=== PATIENT | male | born 1960 | race African-American/Black ===

== ENCOUNTER 2022-04-10 14:46 | Emergency (ER) | payer OTHER ==
[~2022-04-10] VITALS: Ht 182.9 cm; Wt 100.0 kg
[2022-04-10] MEDS ORDERED: LEVETIRACETAM 500MG TABLET PO ONE (16:00)
[2022-04-10] MEDS ORDERED: LORAZEPAM 2MG/ML CPJ ONE (16:59)
[2022-04-10 17:01] LABS: CHLORIDE 105 mEq/L (98-107)
[2022-04-10 17:10] LABS: ETHANOL BLOOD < 10 mg/dL
[2022-04-10 18:35] LABS: BASOPHILS % 0.6 % (0.0-2.0); EOSINOPHILS % 0.5 % (0.0-5.0); HEMATOCRIT. 46.2 % (42.0-52.0); HEMOGLOBIN. 15.4 g/dL (14.0-18.0); LYMPHOCYTES % 12.8 % (20.0-50.0); MEAN CORPUSCULAR HEMOGLOBIN 30.1 pg (28.0-32.0); MEAN CORPUSCULAR VOLUME 90.4 fL (80.0-94.0); MEAN PLATELET VOLUME 9.5 fl (7.4-10.4); MONOCYTES % 9.9 % (2.0-8.0); NEUTROPHILS % 76.2 % (40.0-76.0); PLATELET 187 x1000/uL (130-400); RED BLOOD CELL COUNT 5.11 mill/uL (4.7-6.1); RED CELL DISTRIBUTION WIDTH 15.4 % (11.6-14.6)
[2022-04-11 01:12] VITALS: BP 161/86
== END 2022-04-11 04:42 | disposition short-term general hospital (02) ==
LOC: ER 14:46
DX: G40.901 Epilepsy, unspecified, not intractable, with status epilepticus (principal); Z20.822 Contact with and (suspected) exposure to COVID-19; E11.9 Type 2 diabetes mellitus without complications; Z86.73 Personal history of transient ischemic attack (TIA), and cerebral infarction without residual deficits
CPT/HCPCS: 36415; 70450; 80053; 80320; 85025; 87426; 93005; 99285; C9803; J2060; G0480